=== PATIENT | male | born 1990 | race Caucasian/White ===

== ENCOUNTER 2016-05-22 09:03 | Emergency (ER) | payer OTHER ==
[2016-05-22 10:17] LABS: BASOPHILS 0.2 % (0.0-2.0); HEMATOCRIT 41.9 % (42.0-54.0); HEMOGLOBIN 15.1 g/dL (13.5-17.5); LYMPHOCYTES 26.8 % (15-50); MCH 33.6 pg (26.0-34.0); MCV 93.1 fL (80.0-100.0); MEAN PLATELET VOLUME 8.7 fL (7.4-10.4); MONOCYTES 12.6 % (2-11); NEUTROPHILS 58.4 % (40-80); PLATELET COUNT 105 10x3/uL (130-400); RDW 12.6 % (11.5-14.5); WBC 4.5 10x3/uL (4.8-10.8)
[2016-05-22 10:24] LABS: APTT 29.2 SECONDS (22.8-39.4); INR 0.98 (0.85-1.17); PROTIME 12.9 SECONDS (11.6-15.0)
[2016-05-22 10:31] LABS: ALBUMIN 4.1 g/dL (3.4-5.0); ALKALINE PHOSPHATASE 56 U/L (46-116); ALT (SGPT) 44 U/L (10-68); CALC OSMOLALITY 272 mosm/kg (275-300); CARBON DIOXIDE 30.4 mmol/L (21.0-32.0); CHLORIDE - SERUM 101 mmol/L (98-107); CREATININE - SERUM 0.7 mg/dL (0.6-1.3); GLUCOSE 87 mg/dL (74-106); POTASSIUM - SERUM 4.1 mmol/L (3.5-5.1); PROTEIN - SERUM 7.3 g/dL (6.4-8.2); SODIUM 138 mmol/L (136-145); UREA NITROGEN 6 mg/dL (7-18); eGFR NON AFRICAN AMERICAN > 90 mL/min (90-120)
== END 2016-05-22 11:39 | disposition home or self-care (01) ==
LOC: D.ER 09:03
PROVIDERS: Emergency Medicine
DX: R06.00 Dyspnea, unspecified (principal); R07.89 Other chest pain; R00.1 Bradycardia, unspecified

== ENCOUNTER 2016-06-17 22:31 | Emergency (ER) | payer OTHER | END 2016-06-17 23:43 | disposition home or self-care (01) | LOC: D.ER 22:31 | DX: S46.911A Strain of unspecified muscle, fascia and tendon at shoulder and upper arm level, right arm, initial encounter (principal); X58.XXXA Exposure to other specified factors, initial encounter; Y93.89 Activity, other specified; Y92.89 Other specified places as the place of occurrence of the external cause ==

== ENCOUNTER 2017-01-09 21:32 | Emergency (ER) | payer OTHER | END 2017-01-09 22:23 | disposition home or self-care (01) | LOC: D.ER 21:32 | DX: J01.90 Acute sinusitis, unspecified (principal); R06.00 Dyspnea, unspecified; R05 Cough; R06.2 Wheezing; R00.1 Bradycardia, unspecified ==

== ENCOUNTER 2018-07-03 18:36 | Emergency (ER) | payer OTHER ==
[~2018-07-03] VITALS: Ht 180.3 cm; Wt 83.2 kg
[2018-07-03 18:53] VITALS: Ht 180.3 cm; Wt 83.2 kg
[2018-07-03] MEDS ORDERED: TORADOL10 MG PO (19:56)
[2018-07-03] MEDS ORDERED: ROBAXIN500 MG PO (19:56)
[2018-07-03 20:46] VITALS: BP 142/84
== END 2018-07-03 20:50 | disposition home or self-care (01) ==
LOC: D.ER 18:36
DX: S39.012A Strain of muscle, fascia and tendon of lower back, initial encounter (principal); X58.XXXA Exposure to other specified factors, initial encounter; Y93.89 Activity, other specified; Y92.019 Unspecified place in single-family (private) house as the place of occurrence of the external cause; M62.830 Muscle spasm of back; S29.012A Strain of muscle and tendon of back wall of thorax, initial encounter

== ENCOUNTER 2018-11-11 23:20 | Emergency (ER) | payer OTHER ==
[~2018-11-11] VITALS: Ht 180.3 cm; Wt 86.4 kg
[~2018-11-11 23:20] MED LIST: ROBAXIN500 MG PO; TORADOL10 MG PO
[2018-11-11 23:29] VITALS: Ht 180.3 cm; Wt 86.4 kg
[2018-11-12 00:30] LABS: BASOPHILS 0.1 % (0-2); EOSINOPHILS 1.3 % (0-7); HEMATOCRIT 42.8 % (42.0-54.0); HEMOGLOBIN 15.5 g/dL (13.5-17.5); IMMATURE GRANULOCYTES 0.1 % (0-5); LYMPHOCYTES 20.2 % (15-50); MCHC 36.2 g/dL (31.0-37.0); MCV 93.9 fL (80.0-100.0); MEAN PLATELET VOLUME 8.5 fL (7.4-10.4); NEUTROPHILS 64.3 % (40-80); RBC 4.56 10x6/uL (4.20-6.10); RDW 12.7 % (11.5-14.5); WBC 8.6 10x3/uL (4.8-10.8)
[2018-11-12 00:34] LABS: PLATELET COUNT 146 10x3/uL (130-400)
[2018-11-12 00:43] LABS: ALBUMIN 4.2 g/dL (3.4-5.0); ALKALINE PHOSPHATASE 74 U/L (46-116); ALT (SGPT) 53 U/L (10-68); BILIRUBIN - TOTAL 1.14 mg/dL (0.2-1.3); CALC OSMOLALITY 275 mosm/kg (275-300); CALCIUM 8.7 mg/dL (8.5-10.1); CHLORIDE - SERUM 102 mmol/L (98-107); GLUCOSE 95 mg/dL (74-106); POTASSIUM - SERUM 3.4 mmol/L (3.5-5.1); SODIUM 138 mmol/L (136-145); UREA NITROGEN 12 mg/dL (7-18); eGFR NON AFRICAN AMERICAN > 90 mL/min (90-120)
[2018-11-12 00:51] LABS: APPEARANCE CLEAR (CLEAR); BILIRUBIN NEGATIVE (NEGATIVE); COLOR YELLOW (YELLOW); GLUCOSE NEGATIVE (NEGATIVE); KETONE NEGATIVE (NEGATIVE); NITRITE NEGATIVE (NEGATIVE); PROTEIN NEGATIVE (NEGATIVE); SPECIFIC GRAVITY 1.015 (1.005-1.020); UROBILINOGEN NORMAL (NORMAL)
[2018-11-12] MEDS ORDERED: ZOFRAN ODT4 MG/UDTAB PO (02:00)
[2018-11-12 02:51] VITALS: BP 103/63
== END 2018-11-12 02:40 | disposition home or self-care (01) ==
LOC: D.ER 23:20
PROVIDERS: Family Medicine
DX: T67.5XXA Heat exhaustion, unspecified, initial encounter (principal); X58.XXXA Exposure to other specified factors, initial encounter; Y93.9 Activity, unspecified; R53.1 Weakness

== ENCOUNTER 2020-10-31 09:33 | Emergency (ER) | payer OTHER ==
[~2020-10-31] VITALS: Ht 180.3 cm; Wt 89.1 kg
[~2020-10-31 09:33] MED LIST changes: +ZOFRAN ODT4 MG/UDTAB PO
[2020-10-31 09:50] VITALS: BP 122/80; Ht 180.3 cm; Wt 89.1 kg
== END 2020-10-31 12:15 | disposition left against medical advice (07) ==
LOC: D.ER 09:33
DX: R11.10 Vomiting, unspecified (principal)